=== PATIENT | female | born 1980 | race Caucasian/White ===

== ENCOUNTER 2021-02-18 14:54 | Emergency (ER) | payer OTHER | END 2021-02-18 18:05 | disposition home or self-care (01) | LOC: CSHERS 14:54 | DX: M25.512 Pain in left shoulder (principal); L25.9 Unspecified contact dermatitis, unspecified cause; F17.290 Nicotine dependence, other tobacco product, uncomplicated ==

== ENCOUNTER 2021-10-04 15:39 | Emergency (ER) | payer OTHER ==
[2021-10-04 16:31] LABS: #Basophils 0.1 10x3/uL (0.0-0.2); #Eosinphils 0.1 10x3/uL (0.0-0.5); #Monocytes 0.9 10x3/uL (0.0-1.1); #Neutrophils 5.8 10x3/uL (1.5-8.4); %Basophils 0.9 % (0.0-2.0); %Eosinophils 0.7 % (0.0-6.0); %Lymphocytes 14.7 % (18.0-47.0); %Monocytes 10.8 % (0.0-10.0); %Neutrophils 72.7 % (40.0-75.0); Hemoglobin 11.4 g/dL (12.0-15.5); Mean Corpuscular HGB CONC 35.5 g/dL (32.0-36.0); Mean Corpuscular Hemoglobin 30.4 pg (27.0-33.0); Mean Corpuscular Volume 85.6 fl (81.6-98.3); Mean Platelet Volume 10.8 fl (7.4-10.4); Platelet Count 265 10x3/uL (150-450); RBC Distribution Width 13.7 % (11.5-14.5); Red Blood Cell (RBC) Count 3.75 10x6/uL (3.90-5.03)
[2021-10-04 16:35] LABS: BHCG - Serum Negative (NEGATIVE); Pregs Control Background? CLEAR/WHITE (CLR/WHITE); Pregs Control Bar Appear? YES (CONTROL BAR)
[2021-10-04 16:41] LABS: ALT (SGPT) 9 U/L (8-55); AST (SGOT) 13 U/L (5-34); Albumin 4.2 g/dL (3.5-5.0); Alkaline Phosphatase 40 U/L (40-110); Anion Gap 16 mmol/L (10-20); BUN (Urea Nitrogen) 15 mg/dL (7.0-18.7); Bilirubin, Total 1.5 mg/dL (0.2-1.2); CK (CPK) 163 U/L (29-168); Calc. Creatinine Clearance 0 mL/min (70-130); Calcium 9.2 mg/dL (7.8-10.44); Carbon Dioxide 22 mmol/L (22-29); Chloride 106 mmol/L (98-107); Estimated GFR 71; Glucose 137 mg/dL (70-105); Potassium 3.7 mmol/L (3.5-5.1); Protein, Total 6.2 g/dL (6.0-8.3); Sodium 140 mmol/L (136-145)
== END 2021-10-04 17:03 | disposition home or self-care (01) ==
LOC: CSHERS 15:39
DX: R55 Syncope and collapse (principal); F17.290 Nicotine dependence, other tobacco product, uncomplicated
CPT/HCPCS: 80053; 82550; 84484; 84703; 85025; 96360

== ENCOUNTER 2021-10-06 00:45 | Emergency (ER) | payer OTHER | END 2021-10-06 01:45 | disposition home or self-care (01) | LOC: CSHERS 00:45 | DX: F41.9 Anxiety disorder, unspecified (principal); F17.290 Nicotine dependence, other tobacco product, uncomplicated | CPT/HCPCS: 99283 ==

== ENCOUNTER 2022-03-08 16:29 | Emergency (ER) | payer OTHER | END 2022-03-08 18:35 | disposition home or self-care (01) | LOC: CSHERS 16:29 | DX: R07.81 Pleurodynia (principal); R07.89 Other chest pain; F17.290 Nicotine dependence, other tobacco product, uncomplicated; W18.30XA Fall on same level, unspecified, initial encounter | CPT/HCPCS: 71046 ==